=== PATIENT | female | born 1970 | race Caucasian/White ===

== ENCOUNTER 2020-03-16 07:22 | Emergency (ER) | payer OTHER ==
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
[2020-03-16 07:55] VITALS: BP 136/89
[2020-03-16] MEDS ORDERED: IBUPROFEN 800 MG TAB PO ONE (07:57)
[2020-03-16] MEDS ORDERED: DIPHtheria,PERTUSSIS(ACELL),TETANUS VACCINE/PF 0.5 ML VIAL IM ONE (07:57)
== END 2020-03-16 08:20 | disposition home or self-care (01) ==
LOC: ED 07:22
DX: S00.531A Contusion of lip, initial encounter (principal); Z79.899 Other long term (current) drug therapy; V49.49XA Driver injured in collision with other motor vehicles in traffic accident, initial encounter; Y93.89 Activity, other specified; Y92.488 Other paved roadways as the place of occurrence of the external cause; Y99.8 Other external cause status
CPT/HCPCS: 90471; 90715; 99283